=== PATIENT | female | born 1965 | race American Indian/Alaskan Native ===

== ENCOUNTER 2019-03-14 00:22 | Emergency (ER) | payer MEDICARE, MEDICAID ==
[~2019-03-14] VITALS: Ht 152.4 cm; Wt 84.5 kg
[~2019-03-14 00:22] MED LIST: METH4TAB3 PO; METH500T PO; TRAM50TA2 PO
[2019-03-14] MEDS ORDERED: diphenhydrAMINE 25mg capsule PO ONE (00:50)
[2019-03-14] MEDS ORDERED: DIPH25CA83 PO (00:53)
[2019-03-14] MEDS ORDERED: PRAM177L19 TOP (00:53)
[2019-03-14] MEDS ORDERED: cetirizine 10mg tablet PO STA (01:02)
[2019-03-14 01:11] VITALS: BP 158/96
== END 2019-03-14 01:14 | disposition home or self-care (01) ==
LOC: ER 00:23
DX: L74.0 Miliaria rubra (principal); I10 Essential (primary) hypertension; E11.9 Type 2 diabetes mellitus without complications; M19.90 Unspecified osteoarthritis, unspecified site; G89.29 Other chronic pain; Z98.890 Other specified postprocedural states; Z79.899 Other long term (current) drug therapy
CPT/HCPCS: 99282

== ENCOUNTER 2021-07-15 07:40 | Emergency (ER) | payer MEDICARE, MEDICAID ==
[~2021-07-15] VITALS: Ht 152.4 cm; Wt 90.9 kg
[~2021-07-15 07:40] MED LIST changes: +DIPH25CA83 PO; +PRAM177L19 TOP
[2021-07-15 07:44] VITALS: BP 189/93
[2021-07-15] MEDS ORDERED: LIDO20SO16 PO (09:26)
== END 2021-07-15 09:58 | disposition home or self-care (01) ==
LOC: ER 07:40
DX: J02.8 Acute pharyngitis due to other specified organisms (principal); Z20.822 Contact with and (suspected) exposure to COVID-19; J45.909 Unspecified asthma, uncomplicated; I10 Essential (primary) hypertension; E11.9 Type 2 diabetes mellitus without complications; M19.90 Unspecified osteoarthritis, unspecified site; G89.29 Other chronic pain; Z90.89 Acquired absence of other organs; Z79.899 Other long term (current) drug therapy
CPT/HCPCS: 87081; 87635; 87880; 99283; C9803

== ENCOUNTER 2021-09-25 22:24 | Emergency (ER) | payer MEDICARE, MEDICAID ==
[~2021-09-25] VITALS: Ht 165.1 cm; Wt 90.9 kg
[~2021-09-25 22:24] MED LIST changes: +LIDO20SO16 PO
[2021-09-26 02:26] LABS: BASOPHILS # (AUTO) 0.1 X10'3 (0-0.2); BASOPHILS % (AUTO) 0.8 % (0-1); EOSINOPHILS # (AUTO) 0.1 X10'3 (0-0.9); HEMATOCRIT 42.1 % (35.0-45.0); HEMOGLOBIN 13.7 g/dl (12.0-16.0); LYMPHOCYTES # (AUTO) 2.7 X10'3 (1.1-4.8); LYMPHOCYTES % (AUTO) 21.7 % (21-51); MEAN CORPUSCULAR HEMOGLOBIN 28.4 PG (27.0-31.0); MEAN CORPUSCULAR HGB CONC 32.5 g/dL (33.0-36.5); MEAN CORPUSCULAR VOLUME 87.2 FL (78-98); MEAN PLATELET VOLUME 7.9 FL (7.4-10.4); MONOCYTES # (AUTO) 0.9 X10'3 (0-0.9); NEUTROPHILS # (AUTO) 8.6 X10'3 (1.8-7.7); NEUTROPHILS % (AUTO) 69.5 % (42-75); PLATELET COUNT 331 X10'3 (140-440); RED BLOOD COUNT 4.83 X10'6 (4.20-5.60); WHITE BLOOD COUNT 12.4 X10'3 (4.5-11.0)
[2021-09-26 02:48] LABS: ALANINE AMINOTRANSFERASE 35 U/L (12-78); ALBUMIN 3.6 G/DL (3.4-5.0); ALBUMIN/GLOBULIN RATIO 0.9 (1.1-1.5); ALKALINE PHOSPHATASE 92 IU/L (46-116); ANION GAP 7 (8-16); ASPARTATE AMINO TRANSFERASE 16 U/L (10-37); BILIRUBIN,DIRECT 0.1 MG/DL (0-0.3); BILIRUBIN,TOTAL 0.2 MG/DL (0.1-1.0); BLOOD UREA NITROGEN 21 MG/DL (7-18); BUN/CREATININE RATIO 26.9 (6.6-38.0); CALCIUM 9.3 MG/DL (8.5-10.1); CHLORIDE 110 MMOL/L (99-107); CREATININE 0.78 MG/DL (0.40-0.90); GLUCOSE 100 MG/DL (70-104); LIPASE 141 U/L (73-393); POTASSIUM 3.6 MMOL/L (3.5-5.1); SODIUM 144 MMOL/L (135-145); TOTAL PROTEIN 7.6 G/DL (6.4-8.2); eGFR 77 ML/MIN
[2021-09-26 03:52] VITALS: BP 149/88
== END 2021-09-26 06:36 | disposition left against medical advice (07) ==
LOC: ER 22:25
DX: R00.2 Palpitations (principal); R11.2 Nausea with vomiting, unspecified; I10 Essential (primary) hypertension; E11.9 Type 2 diabetes mellitus without complications; M19.90 Unspecified osteoarthritis, unspecified site; G89.29 Other chronic pain; Z90.89 Acquired absence of other organs; Z79.899 Other long term (current) drug therapy
CPT/HCPCS: 36415; 71045; 80048; 80076; 83690; 84484; 85025; 93005; 99285